=== PATIENT | female | born 1995 | race Caucasian/White ===

== ENCOUNTER 2018-01-10 13:38 | Emergency (ER) | payer OTHER ==
[~2018-01-10] VITALS: Ht 162.6 cm; Wt 51.0 kg
[2018-01-10 13:44] VITALS: Ht 162.6 cm; Wt 51.0 kg
[2018-01-10 14:28] LABS: BASOPHIL % 0.3 % (0-2); PLATELET COUNT 319 x10^3mcL (130-400)
[2018-01-10 14:32] LABS: RED CELL DISTRIBUTION WIDTH 14.9 % (11.5-14.5)
[2018-01-10 14:40] LABS: CALCIUM 8.4 mg/dL (8.5-10.1); CHLORIDE SERUM 102 mmol/L (98-107); CREATININE SERUM 0.7 mg/dL (0.6-1.0); GFR1 > 60 mL/min; GLUCOSE SERUM 83 mg/dL (74-106); POTASSIUM SERUM 3.6 mmol/L (3.5-5.1); SODIUM SERUM 135 mmol/L (136-145)
[2018-01-10 14:44] LABS: ALBUMIN 3.4 g/dL (3.4-5.0); ALKALINE PHOSPHATASE 57 U/L (46-116); ALT/SGPT 17 U/L (14-59); AMYLASE 58 U/L (25-115); AST/SGOT 18 U/L (15-37); BILIRUBIN TOTAL 0.2 mg/dL (0.20-1.00); LIPASE 150 IU/L (73-393); TOTAL PROTEIN, SERUM 7.5 g/dL (6.4-8.2)
[2018-01-10 15:52] VITALS: BP 98/52
== END 2018-01-10 15:52 | disposition home or self-care (01) ==
LOC: ED 13:38
PROVIDERS: Emergency Medicine
DX: R10.2 Pelvic and perineal pain (principal); R30.0 Dysuria; F41.9 Anxiety disorder, unspecified; F32.9 Major depressive disorder, single episode, unspecified; Z86.2 Personal history of diseases of the blood and blood-forming organs and certain disorders involving the immune mechanism
CPT/HCPCS: 36415; 87491; 87591; Q0092

== ENCOUNTER 2018-08-27 10:03 | Emergency (ER) | payer OTHER ==
[~2018-08-27] VITALS: Ht 162.6 cm; Wt 49.9 kg
[2018-08-27 10:08] VITALS: Ht 162.6 cm; Wt 49.9 kg
[2018-08-27 12:30] VITALS: BP 96/59
== END 2018-08-27 12:32 | disposition home or self-care (01) ==
LOC: ED 10:03
DX: M54.5 Low back pain (principal); F41.9 Anxiety disorder, unspecified; F32.9 Major depressive disorder, single episode, unspecified
CPT/HCPCS: J1885

== ENCOUNTER 2018-11-26 12:39 | Emergency (ER) | payer OTHER ==
[~2018-11-26] VITALS: Ht 162.6 cm; Wt 48.1 kg
[2018-11-26 13:00] VITALS: BP 99/62; Ht 162.6 cm; Wt 48.1 kg
== END 2018-11-26 15:54 | disposition left against medical advice (07) ==
LOC: ED 12:39
DX: Z53.21 Procedure and treatment not carried out due to patient leaving prior to being seen by health care provider (principal)

== ENCOUNTER 2018-12-15 01:20 | Emergency (ER) | payer OTHER ==
[~2018-12-15] VITALS: Ht 162.6 cm; Wt 49.6 kg
[2018-12-15 01:34] VITALS: Ht 162.6 cm; Wt 49.6 kg
[2018-12-15 02:33] LABS: CHLORIDE SERUM 107 mmol/L (98-107); POTASSIUM SERUM 3.9 mmol/L (3.5-5.1); SODIUM SERUM 141 mmol/L (136-145)
[2018-12-15 02:34] LABS: CALCIUM 8.5 mg/dL (8.5-10.1); CARBON DIOXIDE 24.9 mmol/L (21-32); CREATININE SERUM 0.6 mg/dL (0.6-1.0); GFR1 > 60 mL/min; GLUCOSE SERUM 97 mg/dL (74-106)
[2018-12-15 03:56] VITALS: BP 118/62
== END 2018-12-15 03:56 | disposition home or self-care (01) ==
LOC: ED 01:20
PROVIDERS: Emergency Medicine
DX: R25.2 Cramp and spasm (principal); M79.662 Pain in left lower leg; F41.9 Anxiety disorder, unspecified; F32.9 Major depressive disorder, single episode, unspecified; Z86.2 Personal history of diseases of the blood and blood-forming organs and certain disorders involving the immune mechanism
CPT/HCPCS: 36415; J1885; Q0092

== ENCOUNTER 2019-02-20 12:36 | Emergency (ER) | payer OTHER ==
[~2019-02-20] VITALS: Ht 162.6 cm; Wt 51.7 kg
[2019-02-20 12:41] VITALS: Ht 162.6 cm; Wt 51.7 kg
[2019-02-20 17:35] VITALS: BP 95/61
== END 2019-02-20 17:35 | disposition home or self-care (01) ==
LOC: ED 12:36
DX: G89.29 Other chronic pain (principal); M54.5 Low back pain; F41.9 Anxiety disorder, unspecified; F32.9 Major depressive disorder, single episode, unspecified; N83.209 Unspecified ovarian cyst, unspecified side; M41.9 Scoliosis, unspecified; Z86.2 Personal history of diseases of the blood and blood-forming organs and certain disorders involving the immune mechanism
CPT/HCPCS: J3010; Q0162

== ENCOUNTER 2019-11-08 10:13 | Emergency (ER) | payer OTHER ==
[~2019-11-08] VITALS: Ht 160 cm; Wt 51.3 kg
[2019-11-08 10:21] VITALS: Ht 160 cm; Wt 51.3 kg
[2019-11-08 11:26] LABS: BASOPHIL % 0.4 % (0-2); PLATELET COUNT 341 x10^3mcL (130-400)
[2019-11-08 11:33] VITALS: BP 99/57
[2019-11-08 11:34] LABS: RED CELL DISTRIBUTION WIDTH 16.6 % (11.5-14.5)
[2019-11-08 11:43] LABS: CALCIUM 8.8 mg/dL (8.5-10.1); CARBON DIOXIDE 23.6 mmol/L (21-32); CHLORIDE SERUM 99 mmol/L (98-107); CREATININE SERUM 0.7 mg/dL (0.6-1.0); GFR1 > 60 mL/min; GLUCOSE SERUM 86 mg/dL (74-106); POTASSIUM SERUM 3.8 mmol/L (3.5-5.1); SODIUM SERUM 133 mmol/L (136-145)
[2019-11-08 11:57] LABS: FREE T4 1.14 ng/dL (0.76-1.46)
[2019-11-08 11:58] LABS: AMPHETAMINE QUAL UR NONE DETECTED (See below)
== END 2019-11-08 12:33 | disposition home or self-care (01) ==
LOC: ED 10:13
PROVIDERS: Emergency Medicine
DX: R55 Syncope and collapse (principal); M54.9 Dorsalgia, unspecified; R11.0 Nausea
CPT/HCPCS: 84439; J1885; Q0092

== ENCOUNTER 2020-01-16 21:52 | Emergency (ER) | payer OTHER ==
[~2020-01-16] VITALS: Ht 162.6 cm; Wt 48.1 kg
[2020-01-16 21:59] VITALS: BP 111/75; Ht 162.6 cm; Wt 48.1 kg
== END 2020-01-16 22:28 | disposition home or self-care (01) ==
LOC: ED 21:52
DX: R04.0 Epistaxis (principal); Z98.890 Other specified postprocedural states